=== PATIENT | female | born 1995 | race Caucasian/White ===

== ENCOUNTER → 2022-12-22 14:20 | Outpatient (CLI) | payer SELFPAY ==
[2022-12-22 16:57] LABS: Progesterone, Total 9.32 ng/mL
== END ==
PROVIDERS: Referring Provider Obstetrics & Gynecology; Visit Provider Obstetrics & Gynecology
DX: E28.2 Polycystic ovarian syndrome (principal); N92.6 Irregular menstruation, unspecified
CPT/HCPCS: 36415; 84144

== ENCOUNTER → 2023-02-27 12:14 | Outpatient (CLI) | payer SELFPAY ==
[2023-02-27 14:20] LABS: HCG Quantitative /Beta subunit 25.9 mIU/mL
== END ==
PROVIDERS: Referring Provider Obstetrics & Gynecology; Visit Provider Obstetrics & Gynecology
DX: E28.2 Polycystic ovarian syndrome (principal); N91.2 Amenorrhea, unspecified
CPT/HCPCS: 36415; 84144; 84702

== ENCOUNTER → 2023-03-02 10:48 | Outpatient (CLI) | payer SELFPAY ==
[2023-03-02 13:27] LABS: HCG Quantitative /Beta subunit 122.2 mIU/mL
== END ==
PROVIDERS: Specialist; Referring Provider Obstetrics & Gynecology; Visit Provider Obstetrics & Gynecology
DX: N96 Recurrent pregnancy loss (principal); N91.2 Amenorrhea, unspecified
CPT/HCPCS: 36415; 84144; 84702

== ENCOUNTER → 2023-03-13 09:04 | Outpatient (CLI) | payer SELFPAY ==
--- NOTE | 2023-03-13 09:08 | DI.US.S_ITS ---
PROCEDURE: US OB <= 14 WEEKS FETUS INDICATIONS: viability, recurrent miscarriages OUTSIDE/PRIOR DATING DATA: Last menstrual period (LMP): 01/30/2023. LMP-based estimated date of delivery (CAESAR): 11/06/2023. First dating scan (date and location): 03/13/2023. Estimated date of delivery (CAESAR) from first dating scan: 11/07/2023. TECHNIQUE: Real-time scanning was performed of the fetus and maternal pelvic organs, with image documentation. Endovaginal scanning was also performed to better visualize the fetus and maternal ovaries. COMPARISON: None. FINDINGS: Embryo: No pole is seen. A yolk sac is present. A gestational sac is seen consistent with 5 weeks and 6 days. Maternal organs: Complex right ovarian cyst measuring 2.7 centimeters, may represent a hemorrhagic cyst or corpus luteal cyst.. IMPRESSION: 1. A gestational sac is present without a pole. The gestational sacs consistent with 5 weeks and 6 days. This may represent an early or failed and beta HCG trend and short-term follow-up ultrasound is recommended. 2. Complex right ovarian cyst measuring 2.7 centimeters, attention on follow-up. We strive to produce accurate, complete, and clear reports of imaging services. To assist us in improving patient care, this report was composed using standard report templates and voice recognition software. Therefore, it may contain abnormal punctuation, insertions and/or omissions. Occasional wrong-word or sound-alike substitutions may occur. Though we review the report and make efforts to correct it, we do recommend that the report be read carefully in proper context to recognize any text inaccuracies. Dictated by: Brayan Whitney M.D. on 03/13/2023 at 10:44 Approved by: Brayan Whitney M.D. on 03/13/2023 at 10:50
== END ==
PROVIDERS: Referring Provider Specialist; Visit Provider Specialist
DX: O36.80X0 Pregnancy with inconclusive fetal viability, not applicable or unspecified (principal); O26.21 Pregnancy care for patient with recurrent pregnancy loss, first trimester; O34.81 Maternal care for other abnormalities of pelvic organs, first trimester; N83.201 Unspecified ovarian cyst, right side; Z3A.01 Less than 8 weeks gestation of pregnancy
CPT/HCPCS: 76801; 76817

== ENCOUNTER → 2023-03-27 11:17 | Outpatient (CLI) | payer OTHER, SELFPAY ==
[2023-03-27 12:47] LABS: Add Manual Diff / Slide Review NO; Basophils Absolute Auto 0 /uL (0-100); Basophils Percent Auto 0.4 % (0-2); Eosinophils Absolute Auto 200 /uL (0-450); Eosinophils Percent Auto 2.3 % (2-4); Hematocrit 38.7 % (36-46); Hemoglobin 13.1 g/dL (12.0-16.0); Lymphocytes Absolute Auto 2000 /uL (1100-4500); Lymphocytes Percent Auto 30.2 % (25-40); Mean Corpuscular HGB Conc 33.8 % (30-36); Mean Corpuscular Volume 88.9 fL (80-100); Monocytes Absolute Auto 300 /uL (0-900); Monocytes Percent Auto 4.9 % (3-14); Neutrophils Absolute Auto 4200 /uL (1500-7000); Neutrophils Percent Auto 62.2 % (50-75); Platelet Count 247 X10^3/uL (150-400); Red Blood Cell Count 4.36 X10^6/uL (4.0-5.2); Red Cell Distribution Width 13.6 % (11.6-14.8); White Blood Cell Count 6.7 X10^3/uL (4.5-11.0)
[2023-03-27 12:53] LABS: Hemoglobin A1C% w Est Avg Glu 4.8 % (4.0-6.0)
[2023-03-27 13:28] LABS: Free T3, Triiodothyronine Free 4.44 pg/mL (2.77-5.27); Free T4, Direct Thyroxine 0.97 ng/dL (0.78-2.19)
[2023-03-27 13:42] LABS: Thyroid Stimulating Hormone 2.02 uIU/mL (0.47-4.68)
[2023-03-27 13:50] LABS: Hepatitis B Surface Antigen NEGATIVE s/c (NEGATIVE); Rubella Antibody IgG 52.3 IU/mL (>15)
[2023-03-27 13:58] LABS: HIV 1 & 2 Ab/Ag 4th Gen Combo NEGATIVE (NEGATIVE); Hep C Virus Ab w/Reflex Quant NEGATIVE s/c (NEGATIVE)
[2023-03-27 15:30] LABS: Urine N gonorrhoeae NOT DETECTED
[2023-03-27 15:44] LABS: Urine Chlamydia NOT DETECTED
[2023-03-28 09:30] LABS: RPR Screen Non Reactive (Non Reactive); Varicella IgG Antibody 1722 index (Immune >165)
== END ==
PROVIDERS: Referring Provider Specialist; Visit Provider Specialist
DX: Z34.81 Encounter for supervision of other normal pregnancy, first trimester (principal); Z3A.08 8 weeks gestation of pregnancy; Z11.3 Encounter for screening for infections with a predominantly sexual mode of transmission; E28.2 Polycystic ovarian syndrome
CPT/HCPCS: 36415; 80055; 83036; 84439; 84443; 84481; 86787; 86803; 86850; 86900; 86901; 87086; 87389; 87491; 87591